=== PATIENT | male | born 1950 | race Caucasian/White ===

== ENCOUNTER → 2024-07-28 12:25 | Outpatient (BNVA) | payer OTHER, SELFPAY | PROVIDERS: Visit Provider Physician Assistant | DX: S39.012A Strain of muscle, fascia and tendon of lower back, initial encounter (principal); X50.0XXA Overexertion from strenuous movement or load, initial encounter | CPT/HCPCS: 72110; 99204 ==

== ENCOUNTER → 2024-08-01 11:19 | Outpatient (BNVA) | payer OTHER, SELFPAY | PROVIDERS: Visit Provider Physician Assistant Medical | DX: S39.012A Strain of muscle, fascia and tendon of lower back, initial encounter (principal); X50.0XXA Overexertion from strenuous movement or load, initial encounter; M54.16 Radiculopathy, lumbar region | CPT/HCPCS: 99213 ==

== ENCOUNTER → 2024-08-03 11:14 | Outpatient (BNVA) | payer OTHER, SELFPAY | PROVIDERS: PCP Physician Assistant; Visit Provider Physician Assistant Medical | DX: S39.012A Strain of muscle, fascia and tendon of lower back, initial encounter (principal); X50.0XXA Overexertion from strenuous movement or load, initial encounter; M54.16 Radiculopathy, lumbar region | CPT/HCPCS: 99213 ==

== ENCOUNTER 2024-08-05 15:27 | Outpatient (REF) | payer OTHER, SELFPAY ==
--- NOTE | ~2024-08-05 | MR_ITS ---
CLINICAL HISTORY: RIGHT LUMBAR RADICULOPATHY. MR lumbar spine without gadolinium Comparison: None Findings: No fracture or acute malalignment. No suspicious marrow lesion. Multilevel disc desiccation and disc space narrowing most pronounced at L4-5 and L5-S1. The conus terminates normally at L1. Cauda equina are unremarkable. Paravertebral soft tissues and retroperitoneal structures appear within expected limits Individual levels: L1-L2: Mild broad-based disc protrusion with facet hypertrophy. No central canal stenosis. No significant neural foraminal narrowing L2-L3: Broad-based disc protrusion with facet hypertrophy. Moderate left neural foraminal narrowing. Moderately severe right neural foraminal narrowing. No central canal stenosis. L3-L4: Small broad-based disc protrusion, left eccentric. Moderately severe bilateral neural foraminal narrowing. No significant central canal stenosis. L4-L5: Small broad-based disc protrusion. Mild facet hypertrophy. Moderately severe left neural foraminal narrowing and moderate right neural foraminal narrowing. No significant central canal stenosis. L5-S1: No significant central canal stenosis. Mild left neural foraminal narrowing. Impression: Multilevel neural foraminal narrowing as detailed. No significant central canal stenosis This document has been electronically signed by: Israel Cardoso MD on 08/05/2024 16:39:40
== END 2024-08-05 15:28 | disposition home or self-care (01) ==
LOC: HO.MRI 15:27
PROVIDERS: PCP Physician Assistant; Visit Provider Internal Medicine
DX: M54.16 Radiculopathy, lumbar region (principal)
CPT/HCPCS: 72148

== ENCOUNTER → 2024-08-05 15:46 | Outpatient (BNV) | payer OTHER, SELFPAY | PROVIDERS: PCP Physician Assistant; Visit Provider Radiology Vascular & Interventional Radiology | DX: M54.16 Radiculopathy, lumbar region (principal) | CPT/HCPCS: 72148 ==

== ENCOUNTER → 2024-08-10 11:09 | Outpatient (BNVA) | payer OTHER, SELFPAY | PROVIDERS: PCP Physician Assistant; Visit Provider Physician Assistant Medical | DX: S39.012A Strain of muscle, fascia and tendon of lower back, initial encounter (principal); X50.0XXA Overexertion from strenuous movement or load, initial encounter; M51.16 Intervertebral disc disorders with radiculopathy, lumbar region | CPT/HCPCS: 99213 ==

== ENCOUNTER → 2024-08-21 10:50 | Outpatient (BNVA) | payer OTHER, SELFPAY | PROVIDERS: PCP Physician Assistant; Visit Provider Physician Assistant Medical | DX: S39.012D Strain of muscle, fascia and tendon of lower back, subsequent encounter (principal); X50.0XXD Overexertion from strenuous movement or load, subsequent encounter; M51.16 Intervertebral disc disorders with radiculopathy, lumbar region | CPT/HCPCS: 99213 ==

== ENCOUNTER 2024-08-30 13:11 | Outpatient (AMB) | payer OTHER, SELFPAY ==
--- NOTE | 2024-08-30 13:22 | A.OFFVIS_ITS ---
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 This pain began after lifting a heavy object at work on July 27, and has persisted since then. The pain was initially intense and affected his ability to stand and walk, with a severe episode occurring two weeks ago that lasted for about 30 hours. It is currently described as mild but persistent, with radiation down the right leg. A recent MRI indicated lumbar foraminal stenosis with no specific nerve root compression. He has been undergoing physical therapy for three weeks and using medications such as Gabapentin. He is employing assistive devices to mitigate the risk of further injury. Recent MRI reviewed, results as per below - Onset and Timing: Began on July 27 after lifting a heavy object. - Quality and Character: Severe, excruciating during peaks, emily to a nielsen splint during milder instances. - Primary Location: Lower back. - Areas of Radiation: Down the right leg, occasionally to the toes. - Exacerbating Factors: Certain movements or postures. - Relieving Factors: Physical therapy, medication (Gabapentin), use of assistive devices like a cane and walker. - Affects activities such as standing, walking, and bending. - Affect: Pain impacts mood, leading to fear of reinjury and affects daily life activities. - Analgesia: Currently using Gabapentin; previously used Tylenol/NSAIDS. Goals include further pain reduction and management. - Adverse Effects: Not noted with current medications; previous muscle relaxant was reportedly ineffective in inducing sleepiness. - Activities of Daily Living: Pain interferes with ambulation, chores, and self- care activities like bending. - Aberrant Drug Related Behaviors: None reported. Denies red flag symptoms including new loss of bowel, bladder or saddle anesthesia. Currently using a cane for ambulation. Occasionally using walker at home. Denies current use of anticoagulants. Denies implantable devices, pacemaker defibrillator Denies current use of nicotine, tobacco, alcohol or illicit substances Review of Systems Const Details: - Musculoskeletal: Reports lower back pain radiating down the right leg. - Neurological: Reports weakness or inability to stand on the right leg after onset. - General: Denies fever, chills, or systemic symptoms. Physical Exam Vital Signs: Last Vital Signs Pulse 78 08/30/24 13:23 Resp 16 08/30/24 13:23 BP 132/70 08/30/24 13:23 Pulse Ox 97 08/30/24 13:23 Oxygen Delivery Method Room Air 08/30/24 13:23 BMI result Body Mass Index 22.6 General: awake, alert, oriented. Answers questions appropriately. Fully engaged in examination. Skin: warm, dry, intact HEENT: Normocephalic. Hearing intact. Cardiac: External chest normal in appearance. Respiratory: No cough, audible wheezing or stridor. Abdomen: without gross distension. MS: No obvious swelling or deformities. Able to stand on bilateral tiptoes and bilateral heels.? Able to transition from sit to stand unassisted. Ambulates with bilaterally normal heel strike and toe off Nontender to palpation of the lumbar vertebrae and lumbar paraspinal muscles SLR positive on the right Bilateral lower extremity strength 5/5 Bilateral lower extremity DTR intact Negative footdrop, negative clonus Decreased lumbar range of motion secondary to pain/stiffness Neurological: Oriented to person, place, time and situation. Thought process intact. Ambulates with the use of a cane Psychiatric: Appropriate mood and affect. Good judgment and insight. Results Reviewed Results Reviewed: 08/05/24 MR lumbar spine without gadolinium Comparison: None Findings: No fracture or acute malalignment. No suspicious marrow lesion. Multilevel disc desiccation and disc space narrowing most pronounced at L4-5 and L5-S1. The conus terminates normally at L1. Cauda equina are unremarkable. Paravertebral soft tissues and retroperitoneal structures appear within expected limits Individual levels: L1-L2: Mild broad-based disc protrusion with facet hypertrophy. No central canal stenosis. No significant neural foraminal narrowing L2-L3: Broad-based disc protrusion with facet hypertrophy. Moderate left neural foraminal narrowing. Moderately severe right neural foraminal narrowing. No central canal stenosis. L3-L4: Small broad-based disc protrusion, left eccentric. Moderately severe bilateral neural foraminal narrowing. No significant central canal stenosis. L4-L5: Small broad-based disc protrusion. Mild facet hypertrophy. Moderately severe left neural foraminal narrowing and moderate right neural foraminal narrowing. No significant central canal stenosis. L5-S1: No significant central canal stenosis. Mild left neural foraminal narrowing. Impression: Multilevel neural foraminal narrowing as detailed. No significant central canal stenosis Assessment & Plan Assessment & Plan (1) Lumbar radiculopathy: Code(s): M54.16 - Radiculopathy, lumbar region Category: Medical (2) Degenerative disc disease, lumbar: Code(s): M51.369 - Other intervertebral disc degeneration, lumbar region without mention of lumbar back pain or lower extremity pain Category: Medical (3) Cervical spondylosis: Code(s): M47.812 - Spondylosis without myelopathy or radiculopathy, cervical region Category: Medical (4) Foraminal stenosis of lumbar region: Code(s): M48.061 - Spinal stenosis, lumbar region without neurogenic claudication Category: Medical Plan Continue with physical therapy for back pain management, prescribing a muscle relaxant as needed. Maintain usage of Gabapentin to manage nerve pain. Educate on proper body mechanics to avoid reinjury and monitor progress. Consider steroid injections should the condition not improve with current treatment. Reassess regularly. During the visit, I discussed the primary diagnosis of lumbar foraminal stenosis and the related sciatica with the patient, emphasizing the importance of continued physical therapy for improvement. I outlined the management plan, prescribing methocarbamol as a muscle relaxant, advising its usage as necessary, especially during severe episodes. The option of steroid injections was discussed as a potential intervention if conservative measures are insufficient, highlighting its risks and benefits. The patient was informed about the need to avoid activities that may exacerbate his condition, with guidance on ergonomic adjustments. We also addressed the importance of adhering to prescribed medications, and regular follow-ups were advised to monitor efficacy and progression. Patient was informed and verbally consented to the use of an ambient scribe for clinic note documentation during this visit. Orders: Orders PT Evaluation and Treatment Today M47.812 - Spondylosis without myelopathy or radiculopathy, cervical region, M48.061 - Spinal stenosis, lumbar region without neurogenic claudication, M51.369 - Other intervertebral disc degeneration, lumbar region without mention of lumbar back pain or lower extremity pain, M54.16 - Radiculopathy, lumbar region Medications: New methocarbamol No driving while taking this medication. Do no take with alcohol or other WIRER Depressants 500 mg PO TID PRN 90 tabs 1RF muscle spasm Patient Instructions: - Continue with physical therapy as prescribed. - Use methocarbamol for muscle spasms as needed. - Take Gabapentin as directed for nerve pain management. - Use a cane or walker to assist with mobility. - Avoid lifting heavy objects and practice proper body mechanics. - Contact the office if pain worsens for possible oral steroid prescription. - Follow up as scheduled, and call if symptoms fail to improve. Coding Level of Care Code New Pt Level 4 (98384) Complex EM visit Add On G2211 Diagnoses Lumbar radiculopathy M54.16 Degenerative disc disease, lumbar M51.369 Cervical spondylosis M47.812 Foraminal stenosis of lumbar region M48.061
[2024-08-30 13:23] VITALS: BP 132/70; PULSE 78; RESP 16; O2SAT 97; BMI 22.6
== END 2024-08-30 14:02 | disposition home or self-care (01) ==
LOC: HO.PMC 13:11
PROVIDERS: PCP Physician Assistant; Visit Provider Registered Nurse Emergency
DX: M54.16 Radiculopathy, lumbar region (principal); M51.369 Other intervertebral disc degeneration, lumbar region without mention of lumbar back pain or lower extremity pain; M47.812 Spondylosis without myelopathy or radiculopathy, cervical region; M48.061 Spinal stenosis, lumbar region without neurogenic claudication
CPT/HCPCS: 99204; G2211

== ENCOUNTER → 2024-08-30 13:11 | Outpatient (BNVA) | payer OTHER, SELFPAY | PROVIDERS: PCP Physician Assistant; Visit Provider Registered Nurse Emergency | DX: M54.16 Radiculopathy, lumbar region (principal); M51.369 Other intervertebral disc degeneration, lumbar region without mention of lumbar back pain or lower extremity pain; M47.812 Spondylosis without myelopathy or radiculopathy, cervical region; M48.061 Spinal stenosis, lumbar region without neurogenic claudication | CPT/HCPCS: 99202 ==

== ENCOUNTER → 2024-09-05 11:14 | Outpatient (BNVA) | payer OTHER, SELFPAY | PROVIDERS: PCP Physician Assistant; Visit Provider Physician Assistant Medical | DX: S39.012D Strain of muscle, fascia and tendon of lower back, subsequent encounter (principal); X50.0XXD Overexertion from strenuous movement or load, subsequent encounter; M51.16 Intervertebral disc disorders with radiculopathy, lumbar region | CPT/HCPCS: 99213 ==

== ENCOUNTER 2024-09-06 11:00 | Outpatient (RCR) | payer OTHER, SELFPAY ==
--- NOTE | 2024-08-09 11:49 | MHC.PT.EP ---
[facility] [place] Office [place] Office [place] Office [address] Mariela Mayorga [address] [phone] F: [phone] F: [phone] F: [phone] F: [phone] Physical Therapy Plan of Care Date of Evaluation: 08/09/24 Date of Surgery: n/a Diagnosis: R lumbar radiculopathy Assessment: Patient is a 74 year old male presenting to PT with complaints of pain in his R low back. Pt reports onset of pain began 07/27/2024 due to lifting at work. He presents today with impairments in pain, lumbar ROM, hip strength, radicular sx. 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 Pt expresses mcc goal of reducing pain, and is motivated to work towards this in PT. Clinical presentation today is most consistent with signs and sx associated with R low back pain and pt will benefit from skilled PT 2 week x 4 weeks to address the following problems and impairments noted upon evaluation: pain, lumbar ROM, hip strength, radicular sx. These problems limit the patient with the following functional activities: work, ambulating, standing, stair negotiation. The prescribed treatment plan of care is medically necessary. Co-morbidities of hx cancer, murmur were identified and taken into considerations of plan of care. Pt was educated on HEP, role of PT, prognosis, POC. Frequency and Duration: The patient will be seen 2 x week x 4 weeks Short Term Goals: Pt will demonstrate centralization of sx in 2 weeks. Pt will demonstrate improved hip MMT strength by 1/3 grade in 2 weeks. Pt will demonstrate ability to move through available lumbar ROM in 2 weeks. Automatic Stacker Goals: Pt will demonstrate improved Juan F score by 10% in 4 weeks for improved functional mobility. Pt will demonstrate ability to bend and lift with min to no pain for prepare to return to work in 4 weeks. Pt will demonstrate ability to ambulate community distances with min to no pain in 4 weeks for return to PLOF. Treatment Plan: Modalities to reduce pain, spasms and effusion. Manual therapy to restore motion and function. Therapeutic exercise to improve strength and flexibility. Neuromuscular re-education for posture and balance. Therapeutic activities to return to functional activities of daily living. Electronically signed by: Micki Bailey PT, DPT, ATC Please sign and return to therapist. Thank you for your referral.
--- NOTE | 2024-09-06 11:51 | MHC.PT.DC ---
[facility] [place] Office [place] Office [place] Office [address] Mariela Mayorga [address] [phone] F: [phone] F: [phone] F: [phone] F: [phone] Physical Therapy Discharge Report Diagnosis: R lumbar radiculopathy Date of Surgery: n/a Date of Evaluation: 08/09/24 Date of Discharge: 09/06/24 Treatments to Date: 8 Cancellations to Date: 0 No Shows to Date: 0 Discharge Status: Independent with HEP Recommend MD Follow-up Discharge Summary: 09/06/2024: Pt made some initial progress with skilled PT however recently he has not been making any further progress. He continues to have shooting pain down his leg as far as his ankle requiring the use of a cane. He feels his R knee is heavy and randomly gives out on him. This is despite also being on a couple different medications for his sx. We have tried a variety of interventions in skilled PT all without significant success. Due to pt?s recent lack of progress, it is no longer appropriate to continue with skilled PT. He recently saw pain management and work connection both of whom would like for him to continue with PT, however I can not justify this due to his recent lack of progress both objectively and functionally. He is independent with his HEP, therefore, I recommend he continues to work on his HEP to maintain gains made thus far. I also recommend he continues to follow up with work connection and pain management as scheduled to manage his ongoing pain/sx. Pt is in agreement with this plan. Electronically signed by: Micki Bailey, PT, DPT, ATC Please sign and return to therapist. Thank you for your referral.
== END 2024-09-06 11:51 | disposition home or self-care (01) ==
LOC: HO.PTCHIC 11:00
PROVIDERS: PCP Physician Assistant; Visit Provider Physician Assistant Medical
DX: M54.16 Radiculopathy, lumbar region (principal)
CPT/HCPCS: 97110; 97140; 97161

== ENCOUNTER 2024-09-22 11:08 | Outpatient (AMB) | payer OTHER, SELFPAY ==
[2024-09-22 11:28] VITALS: BP 142/75; PULSE 80; O2SAT 98; BMI 22.7
--- NOTE | 2024-09-22 11:28 | MHC.OFFVIS ---
Vital Signs 09/22/24 11:28 Height 6 ft Weight 167 lb 6 oz BMI 22.7 BP 142/75 H Blood Pressure Location Rt brachial Position Sitting Pulse 80 Pulse Source Pulse Oximeter Pulse Oximetry (%) 98 Oxygen Delivery Method Room Air Intake Visit Reasons: Follow Up After Discharge From PT Allergies shellfish derived Adverse Reaction (Severe, Verified 09/22/24 11:29) Headache HPI Comments Details: The patient is a 74-year-old male presenting with management of persistent but improved lower back pain and right lumbar radiculopathy. The patient has been experiencing chronic lower back pain with radiation to the right leg for an extended period. Despite experiencing intermittent tingling the severity has reduced over time and the pain is not as debilitating. Pain today is rated as a 3/10. The patient reports that various factors such as movement can trigger episodes of discomfort, but there is no clear pattern. While activities like physical therapy have previously been exhausted with reported maximum benefit reached, continued at-home exercises are maintained with some benefit. The patient is also reliant on muscle relaxants, which are unpleasant due to adverse effects. - Onset and Timing: Persistent lower back pain, chronic in nature - Quality/Character: Described as stabbing, throbbing; intermittent tingling and zipping sensations - Location: Lower back with radiation to right leg - Radiation: Right leg - Exacerbating Factors: Movement, postures, changes in activity level - Relieving Factors: Muscle relaxants, physical therapy, gabapentin. previously used Tylenol/NSAIDS - Interference: Limiting full engagement in activities, impacting quality of life and work ability - Affect: Persistent pain causes frustration but severity has improved, impacting daily functions - Analgesia: Muscle relaxants taken; ongoing pain but not as intense - Adverse Effects: Unpleasant side effects from muscle relaxants - Activities of Daily Living: Limited engagement in full activities; considering return to work - Aberrant Drug Related Behaviors: None reported Review of Systems Const Details: - Musculoskeletal: Reports persistence of lower back pain radiating to the right leg; denies debilitating severity - Neurologic: Reports episodic tingling in lower back and leg - General: Denies other new symptoms Physical Exam Vital Signs: Last Vital Signs Pulse 80 09/22/24 11:28 BP 142/75 H 09/22/24 11:28 Pulse Ox 98 09/22/24 11:28 Oxygen Delivery Method Room Air 09/22/24 11:28 BMI result Body Mass Index 22.7 General: awake, alert, oriented. Answers questions appropriately. Fully engaged in examination. Skin: warm, dry, intact HEENT: Normocephalic. Hearing intact. Cardiac: External chest normal in appearance. Respiratory: No cough, audible wheezing or stridor. Abdomen: without gross distension. MS: No obvious swelling or deformities. Able to stand on bilateral tiptoes and bilateral heels.? Able to transition from sit to stand unassisted. Ambulates with bilaterally normal heel strike and toe off Nontender to palpation of the lumbar vertebrae and lumbar paraspinal muscles SLR positive on the right. Negative footdrop, negative clonus Neurological: Oriented to person, place, time and situation. Thought process intact. Ambulates with the use of a cane Psychiatric: Appropriate mood and affect. Good judgment and insight. Results Reviewed Results Reviewed: 08/05/24 MR lumbar spine without gadolinium Comparison: None Findings: No fracture or acute malalignment. No suspicious marrow lesion. Multilevel disc desiccation and disc space narrowing most pronounced at L4-5 and L5-S1. The conus terminates normally at L1. Cauda equina are unremarkable. Paravertebral soft tissues and retroperitoneal structures appear within expected limits Individual levels: L1-L2: Mild broad-based disc protrusion with facet hypertrophy. No central canal stenosis. No significant neural foraminal narrowing L2-L3: Broad-based disc protrusion with facet hypertrophy. Moderate left neural foraminal narrowing. Moderately severe right neural foraminal narrowing. No central canal stenosis. L3-L4: Small broad-based disc protrusion, left eccentric. Moderately severe bilateral neural foraminal narrowing. No significant central canal stenosis. L4-L5: Small broad-based disc protrusion. Mild facet hypertrophy. Moderately severe left neural foraminal narrowing and moderate right neural foraminal narrowing. No significant central canal stenosis. L5-S1: No significant central canal stenosis. Mild left neural foraminal narrowing. Impression: Multilevel neural foraminal narrowing as detailed. No significant central canal stenosis Assessment & Plan Assessment & Plan (1) Lumbar radiculopathy: Code(s): M54.16 - Radiculopathy, lumbar region Category: Medical (2) Degenerative disc disease, lumbar: Code(s): M51.369 - Other intervertebral disc degeneration, lumbar region without mention of lumbar back pain or lower extremity pain Category: Medical (3) Cervical spondylosis: Code(s): M47.812 - Spondylosis without myelopathy or radiculopathy, cervical region Category: Medical (4) Foraminal stenosis of lumbar region: Code(s): M48.061 - Spinal stenosis, lumbar region without neurogenic claudication Category: Medical Plan The management of this patient's chronic lower back pain and right lumbar radiculopathy will involve an epidural steroid injection, aimed at reducing inflammation and nerve irritation to alleviate symptoms. This step is taken as physical therapy has reached maximum benefit and ongoing muscle relaxants provide limited relief with notable adverse effects. This intervention, performed under x-ray guidance, aims to relieve pain significantly, facilitating increased functionality and quality of life. With insurance approval sought, the patient will be scheduled for the procedure. The potential risks, though present, are outweighed by the expected benefits. Continuation of home exercises and medication review will be part of ongoing management to ensure safety and efficacy of care. I discussed with the patient the persistent nature of his lower back pain and radiculopathy despite prior treatment with physical therapy, Tylenol, NSAIDs and muscle relaxants. We agreed on proceeding with an epidural steroid injection as a logical next step, aiming to control inflammation and alleviate persistent symptoms. I reviewed the benefits of reducing nerve irritation and improving function, acknowledging the possible risks but explaining that they are considerably outweighed by the anticipated benefits. Discussion encompassed the procedural details, available under x-ray guidance maximizing accuracy, and how Workman's Compensation will cover the cost once approved. The patient expressed understanding and agreement with the plan, looking forward to potentially achieving better pain management. I emphasized the importance of continuing at-home exercises and monitoring symptoms, allowing for timely adjustments to care. Instructions for follow-up were documented, and reassurance was provided regarding the preliminary nature of the ongoing symptom management approach. Will schedule for fluoroscopy guided right L4-5 transforaminal epidural steroid injection with local anesthetic. Patient was informed and verbally consented to the use of an ambient scribe for clinic note documentation during this visit. Patient Instructions: - Continue prescribed at-home exercises daily. - Take muscle relaxants as directed but be aware of side effects. - Await scheduling call for epidural steroid injection. - Monitor for any worsening of pain or new symptoms. - Report any adverse effects or severe pain promptly. - Stay active with light activities and adjust intensity as tolerated. - Consult family or friends for support and assistance if needed. Coding Level of Care Code Est Pt Level 3 (09498) Complex EM visit Add On G2211 Diagnoses Lumbar radiculopathy M54.16 Degenerative disc disease, lumbar M51.369 Cervical spondylosis M47.812 Foraminal stenosis of lumbar region M48.061
== END 2024-09-22 11:49 | disposition home or self-care (01) ==
LOC: HO.PMC 11:09
PROVIDERS: PCP Physician Assistant; Visit Provider Registered Nurse Emergency
DX: M54.16 Radiculopathy, lumbar region (principal); M51.369 Other intervertebral disc degeneration, lumbar region without mention of lumbar back pain or lower extremity pain; M47.812 Spondylosis without myelopathy or radiculopathy, cervical region; M48.061 Spinal stenosis, lumbar region without neurogenic claudication
CPT/HCPCS: 99213; G2211

== ENCOUNTER → 2024-09-22 11:08 | Outpatient (BNVA) | payer OTHER, SELFPAY | PROVIDERS: PCP Physician Assistant; Visit Provider Registered Nurse Emergency | DX: M54.16 Radiculopathy, lumbar region (principal); M51.369 Other intervertebral disc degeneration, lumbar region without mention of lumbar back pain or lower extremity pain; M47.812 Spondylosis without myelopathy or radiculopathy, cervical region; M48.061 Spinal stenosis, lumbar region without neurogenic claudication | CPT/HCPCS: 99212 ==

== ENCOUNTER → 2024-09-26 11:10 | Outpatient (BNVA) | payer OTHER, SELFPAY | PROVIDERS: PCP Physician Assistant; Visit Provider Physician Assistant Medical | DX: S39.012D Strain of muscle, fascia and tendon of lower back, subsequent encounter (principal); X50.0XXD Overexertion from strenuous movement or load, subsequent encounter; M54.16 Radiculopathy, lumbar region; M51.26 Other intervertebral disc displacement, lumbar region | CPT/HCPCS: 99213 ==

== ENCOUNTER → 2024-10-05 13:38 | Outpatient (BNVA) | payer OTHER, SELFPAY | PROVIDERS: PCP Physician Assistant; Visit Provider Physician Assistant Medical | DX: S39.012D Strain of muscle, fascia and tendon of lower back, subsequent encounter (principal); X50.0XXD Overexertion from strenuous movement or load, subsequent encounter; M51.16 Intervertebral disc disorders with radiculopathy, lumbar region | CPT/HCPCS: 99213 ==

== ENCOUNTER → 2024-11-02 14:32 | Outpatient (BNVA) | payer OTHER, SELFPAY | PROVIDERS: PCP Physician Assistant; Visit Provider Physician Assistant Medical | DX: S39.012D Strain of muscle, fascia and tendon of lower back, subsequent encounter (principal); X50.0XXD Overexertion from strenuous movement or load, subsequent encounter; M51.16 Intervertebral disc disorders with radiculopathy, lumbar region | CPT/HCPCS: 99213 ==

== ENCOUNTER 2024-11-28 10:07 | Outpatient (REF) | payer OTHER, SELFPAY ==
--- NOTE | ~2024-11-28 | FL_ITS ---
EXAMINATION: FL GUIDANCE ONLY HISTORY: M54.16 - Radiculopathy, lumbar region COMPARISON: Correlation is made with plain films of the lumbar spine dated 07/28/2024. TECHNIQUE: Fluoroscopy time: 0.2 minutes. Cumulative Dose: 3.17 mGy. DAP: 0.0551 mGym2 Images: 1. FINDINGS: A single fluoroscopic spot film of the lumbar spine in the AP projection demonstrates a needle and contrast material in the region of the right L4-5 facet joint. FL/FL guidance in treatment room IMPRESSION: Fluoroscopy during procedure. Please see procedure report for additional information. Electronically signed by: Yves Drew MD 11/28/2024 11:44 AM EDT
== END 2024-11-28 10:08 | disposition home or self-care (01) ==
LOC: CF 10:07
PROVIDERS: Visit Provider Anesthesiology
DX: M51.16 Intervertebral disc disorders with radiculopathy, lumbar region (principal)
CPT/HCPCS: 64483; J2003; J3301; Q9967

== ENCOUNTER 2024-11-28 10:25 | Outpatient (AMB) | payer OTHER, SELFPAY ==
[2024-11-28 10:44] VITALS: BP 138/72; PULSE 67; RESP 18; O2SAT 98; BMI 22.6
--- NOTE | 2024-11-28 10:44 | A.OFFVIS_ITS ---
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: No Allergies shellfish derived Adverse Reaction (Severe, Verified 09/22/24 11:29) Headache Physical Exam Vital Signs: Last Vital Signs Pulse 67 11/28/24 10:44 Resp 18 11/28/24 10:44 BP 138/72 11/28/24 10:44 Pulse Ox 98 11/28/24 10:44 Oxygen Delivery Method Room Air 11/28/24 10:44 BMI result Body Mass Index 22.6 Assessment & Plan Assessment & Plan (1) Lumbar radiculopathy: Code(s): M54.16 - Radiculopathy, lumbar region Category: Medical (2) Degenerative disc disease, lumbar: Code(s): M51.369 - Other intervertebral disc degeneration, lumbar region without mention of lumbar back pain or lower extremity pain Category: Medical Plan Transforaminal right L4-5 epidural steroid injection Informed consent was thoroughly explained to the patient before the procedure. The patient came to the operating room. He was positioned prone on operating table with a pillow under her abdomen. Time-out was performed delineating correct site and side of the procedure, nature of the injection, name and date of of the patient. The lower back of the patient was prepped with ChloraPrep and draped with sterile utility towels. C-arm was brought over the operating field and sq picture of L4 vertebra was demonstrated on the screen. The right side was chosen as the side of the injection. Tilting machine ipsilateral to the right at the level of L3 the most prominent picture of the pedicle on the right was demonstrated on the screen. 3 mm below the most lowest point of the pedicle projection to the skin small amount of lidocaine 1% was injected to anesthetize the skin. After that 5 in 22 gauge Quincke point needle was inserted through the skin wheal and was advanced toward the L3-L4 foramina on anterior posterior, lateral and oblique views intermittently. When the needle entered foramina on AP view. When tip of the needle entered foramina projection on AP view injection of the contrast was performed demonstrating epidural and perineural spread of the contrast. After that injection of the treatment medicine 3 cc of preservative-free lidocaine 1% mixed with Kenalog 20 mg was injected into the foramina. No intrathecal and no intravascular spread of the contrast was noted. The needle was removed . Upon completion of the procedure needle was removed and sterile Band-Aid was applied. Patient tolerated the procedure well. Orders: Orders FL guidance in treatment room Today M54.16 - Radiculopathy, lumbar region Coding Level of Care Code Procedure Only Diagnoses Lumbar radiculopathy M54.16 Degenerative disc disease, lumbar M51.369
== END 2024-11-28 11:19 | disposition home or self-care (01) ==
LOC: HO.PMCPRC 10:25
PROVIDERS: PCP Physician Assistant; Visit Provider Anesthesiology
DX: M54.16 Radiculopathy, lumbar region (principal); M51.369 Other intervertebral disc degeneration, lumbar region without mention of lumbar back pain or lower extremity pain
CPT/HCPCS: 64483

== ENCOUNTER → 2024-12-08 14:21 | Outpatient (BNVA) | payer OTHER, SELFPAY | PROVIDERS: PCP Physician Assistant; Visit Provider Physician Assistant Medical | DX: M51.16 Intervertebral disc disorders with radiculopathy, lumbar region (principal) | CPT/HCPCS: 99213 ==

== ENCOUNTER 2024-12-27 09:02 | Outpatient (AMB) | payer OTHER, SELFPAY ==
--- NOTE | 2024-12-27 09:20 | A.OFFVIS_ITS ---
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 He underwent a right L4 L5 transforaminal epidural steroid injection four weeks ago, which has improved the leg pain significantly, although some residual back pain persists. The back pain is described as a dull ache, primarily in the middle and right side, occasionally radiating to the left side. The patient reports difficulty with certain activities, such as getting in and out of the car and putting on compression socks, due to the pain. He continues to experience intermittent pain in the knee and leg, although it is much improved since the injection. The patient has a history of arthritis, which contributes to the dull, aching pain in the back and neck. He describes the pain as non-constant, with some days being pain-free, while other days the pain returns after physical activity. - Onset: Pain began prior to the epidural steroid injection. - Quality: Described as a dull ache. - Location: Primarily in the middle and right side of the back, occasionally radiating to the left side. - Exacerbating factors: Activities such as getting in and out of the car, bending, and twisting. - Relieving factors: Chiropractic adjustments provide temporary relief. - Interference: Affects activities like putting on compression socks and lifting objects. - Affect: Pain impacts daily activities and causes concern about future physical capabilities. - Analgesia: Previous epidural steroid injection improved leg pain; current back pain persists. - Adverse Effects: No adverse effects from pain management were discussed. - Activities of Daily Living: Pain affects activities such as driving and dressing. - Aberrant Drug Related Behaviors: No aberrant behaviors reported. Prior: The patient is a 74-year-old male presenting with management of persistent but improved lower back pain and right lumbar radiculopathy. The patient has been experiencing chronic lower back pain with radiation to the right leg for an extended period. Despite experiencing intermittent tingling the severity has reduced over time and the pain is not as debilitating. Pain today is rated as a 3/10. The patient reports that various factors such as movement can trigger episodes of discomfort, but there is no clear pattern. While activities like physical therapy have previously been exhausted with reported maximum benefit reached, continued at-home exercises are maintained with some benefit. The patient is also reliant on muscle relaxants, which are unpleasant due to adverse effects. - Onset and Timing: Persistent lower back pain, chronic in nature - Quality/Character: Described as stabbing, throbbing; intermittent tingling and zipping sensations - Location: Lower back with radiation to right leg - Radiation: Right leg - Exacerbating Factors: Movement, postures, changes in activity level - Relieving Factors: Muscle relaxants, physical therapy, gabapentin. previously used Tylenol/NSAIDS - Interference: Limiting full engagement in activities, impacting quality of life and work ability - Affect: Persistent pain causes frustration but severity has improved, impacting daily functions - Analgesia: Muscle relaxants taken; ongoing pain but not as intense - Adverse Effects: Unpleasant side effects from muscle relaxants - Activities of Daily Living: Limited engagement in full activities; considering return to work - Aberrant Drug Related Behaviors: None reported Review of Systems Const Details: - Musculoskeletal: Reports dull, aching back pain; denies constant pain. - Neurological: Reports intermittent knee and leg pain; denies persistent leg pain. - Genitourinary: Reports increased urinary frequency post-prostate cancer treatment. - General: Reports muscle cramps at night. Physical Exam Exam Exam: General: awake, alert, oriented. Answers questions appropriately. Fully engaged in examination. Skin: warm, dry, intact HEENT: Normocephalic. Hearing intact. Cardiac: External chest normal in appearance. Respiratory: No cough, audible wheezing or stridor. Abdomen: without gross distension. MS: No obvious swelling or deformities. Able to stand on bilateral tiptoes and bilateral heels.? Able to transition from sit to stand unassisted. Ambulates with bilaterally normal heel strike and toe off Nontender to palpation of the lumbar vertebrae and lumbar paraspinal muscles SLR negative bilaterally Facet loading positive Neurological: Oriented to person, place, time and situation. Thought process intact. Ambulates with the use of a cane Psychiatric: Appropriate mood and affect. Good judgment and insight. Vital Signs: Last Vital Signs Pulse 62 12/27/24 09:21 Resp 16 12/27/24 09:21 BP 131/65 12/27/24 09:21 Pulse Ox 98 12/27/24 09:21 Oxygen Delivery Method Room Air 12/27/24 09:21 BMI result Body Mass Index 22.4 Results Reviewed Results Reviewed: 08/05/24 MR lumbar spine without gadolinium Comparison: None Findings: No fracture or acute malalignment. No suspicious marrow lesion. Multilevel disc desiccation and disc space narrowing most pronounced at L4-5 and L5-S1. The conus terminates normally at L1. Cauda equina are unremarkable. Paravertebral soft tissues and retroperitoneal structures appear within expected limits Individual levels: L1-L2: Mild broad-based disc protrusion with facet hypertrophy. No central canal stenosis. No significant neural foraminal narrowing L2-L3: Broad-based disc protrusion with facet hypertrophy. Moderate left neural foraminal narrowing. Moderately severe right neural foraminal narrowing. No central canal stenosis. L3-L4: Small broad-based disc protrusion, left eccentric. Moderately severe bilateral neural foraminal narrowing. No significant central canal stenosis. L4-L5: Small broad-based disc protrusion. Mild facet hypertrophy. Moderately severe left neural foraminal narrowing and moderate right neural foraminal narrowing. No significant central canal stenosis. L5-S1: No significant central canal stenosis. Mild left neural foraminal narrowing. Impression: Multilevel neural foraminal narrowing as detailed. No significant central canal stenosis Assessment & Plan Assessment & Plan (1) Lumbar radiculopathy: Code(s): M54.16 - Radiculopathy, lumbar region Category: Medical (2) Degenerative disc disease, lumbar: Code(s): M51.369 - Other intervertebral disc degeneration, lumbar region without mention of lumbar back pain or lower extremity pain Category: Medical (3) Cervical spondylosis: Code(s): M47.812 - Spondylosis without myelopathy or radiculopathy, cervical region Category: Medical (4) Foraminal stenosis of lumbar region: Code(s): M48.061 - Spinal stenosis, lumbar region without neurogenic claudication Category: Medical (5) Lumbar spondylosis: Code(s): M47.816 - Spondylosis without myelopathy or radiculopathy, lumbar region Category: Medical Plan Patient is suffering with axial lower back pain. The plan involves conducting diagnostic injections to confirm facet joints as the pain generator. The patient will keep a pain diary to evaluate the impact of these injections. Should the diagnostic injections confirm joint involvement, options such as steroid injections, temporary peripheral nerve stimulator or nerve ablation will be explored for sustained relief. The patient is advised to see his primary care physician about the muscle cramps to check for possible electrolyte imbalances. He is encouraged to continue chiropractic treatments and to use proper body mechanics to avoid symptom aggravation. Will schedule for fluoroscopy guided diagnostic bilateral L3-L4 DR L5 medial branch blocks with local anesthetic. Patient was informed and verbally consented to the use of an ambient scribe for clinic note documentation during this visit. Patient Instructions: - Keep a pain diary to monitor the effectiveness of the diagnostic injections. - Consult your primary care physician about muscle cramps to check for electrolyte imbalances. - Continue acute care occupational therapist and practice good body mechanics to prevent symptom exacerbation. Coding Level of Care Code Est Pt Level 3 (28205) Complex EM visit Add On G2211 Diagnoses Lumbar radiculopathy M54.16 Degenerative disc disease, lumbar M51.369 Cervical spondylosis M47.812 Foraminal stenosis of lumbar region M48.061 Lumbar spondylosis M47.816
[2024-12-27 09:21] VITALS: BP 131/65; PULSE 62; RESP 16; O2SAT 98; BMI 22.4
== END 2024-12-27 09:42 | disposition home or self-care (01) ==
LOC: HO.PMC 09:02
PROVIDERS: PCP Physician Assistant; Visit Provider Registered Nurse Emergency
DX: M54.16 Radiculopathy, lumbar region (principal); M51.369 Other intervertebral disc degeneration, lumbar region without mention of lumbar back pain or lower extremity pain; M47.812 Spondylosis without myelopathy or radiculopathy, cervical region; M48.061 Spinal stenosis, lumbar region without neurogenic claudication; M47.816 Spondylosis without myelopathy or radiculopathy, lumbar region
CPT/HCPCS: 99213; G2211

== ENCOUNTER → 2024-12-27 09:02 | Outpatient (BNVA) | payer OTHER, SELFPAY | PROVIDERS: PCP Physician Assistant; Visit Provider Registered Nurse Emergency | DX: M54.16 Radiculopathy, lumbar region (principal); M51.369 Other intervertebral disc degeneration, lumbar region without mention of lumbar back pain or lower extremity pain; M47.812 Spondylosis without myelopathy or radiculopathy, cervical region; M48.061 Spinal stenosis, lumbar region without neurogenic claudication; M47.816 Spondylosis without myelopathy or radiculopathy, lumbar region | CPT/HCPCS: 99212 ==

== ENCOUNTER → 2025-01-05 14:21 | Outpatient (BNVA) | payer OTHER, SELFPAY | PROVIDERS: PCP Physician Assistant; Visit Provider Physician Assistant Medical | DX: M51.16 Intervertebral disc disorders with radiculopathy, lumbar region (principal) | CPT/HCPCS: 99213 ==

== ENCOUNTER 2025-02-06 06:10 | Outpatient (REF) | payer OTHER, SELFPAY ==
--- NOTE | ~2025-02-06 | FL_ITS ---
EXAMINATION: FL GUIDANCE ONLY HISTORY: M47.816 - Spondylosis without myelopathy or radiculopathy, lumbar region COMPARISON: None available. TECHNIQUE: Fluoroscopy time: 1 minute, 6 seconds. Cumulative Dose: 10.6 mGy. DAP: 307.21 uGym2 Images: 10. FINDINGS: Fluoroscopic spot films of the lumbar spine in the AP projection demonstrate needles and contrast material in the regions of the bilateral L3-4, L4-5, and L5-S1 facet joints. FL/FL guidance in treatment room IMPRESSION: Fluoroscopy during procedure. Please see procedure report for additional information. Electronically signed by: Yves Drew MD 02/08/2025 07:27 AM EDT
== END 2025-02-06 06:11 | disposition home or self-care (01) ==
LOC: CF 06:10
PROVIDERS: Visit Provider Anesthesiology
DX: M47.816 Spondylosis without myelopathy or radiculopathy, lumbar region (principal)
CPT/HCPCS: 64493; 64494; J2003; J2795; Q9967

== ENCOUNTER 2025-02-06 07:48 | Outpatient (AMB) | payer OTHER, SELFPAY ==
--- NOTE | 2025-02-06 07:55 | MHC.OFFVIS ---
Vital Signs 02/06/25 07:56 Weight 165 lb BP 151/71 H Blood Pressure Location Lt brachial Position Sitting Respiration 18 Pulse 61 Pulse Source Pulse Oximeter Pulse Oximetry (%) 100 Oxygen Delivery Method Room Air Intake Visit Reasons: Bilateral Diagnostic L3-L4-DR L5 MBB Promotion Officer Required: No Allergies shellfish derived Adverse Reaction (Severe, Verified 12/27/24 09:25) Headache Physical Exam Vital Signs: Last Vital Signs Pulse 61 02/06/25 07:56 Resp 18 02/06/25 07:56 BP 151/71 H 02/06/25 07:56 Pulse Ox 100 02/06/25 07:56 Oxygen Delivery Method Room Air 02/06/25 07:56 Assessment & Plan Assessment & Plan (1) Lumbar spondylosis: Code(s): M47.816 - Spondylosis without myelopathy or radiculopathy, lumbar region Category: Medical Plan Diagnostic medial branch block L3,L4 dorsal ramus L5 bilateral.? ? ?Informed consent was explained to the patient. All questions were explained and? answered.? The patient was taken inside the operating room where he was positioned prone on the operating table. Time-out was performed delineating correct site, side, the nature of the procedure, patient's allergy, . All operating room staff was participating in OR time-out procedure. ? ? The lower back was prepped with ChloraPrep and draped with sterile utility towels.? C-arm was brought over the operating field and sq picture of L4-, L5 vertebra and S1 AREA were delineated on the screen.? Point of interest were delineated as confluence of superior articular process of L4 and L5 vertebra bilaterally with corresponding transverse processes as well as confluence of the sacral alae bilaterally with superior articular process of S1.? The projection of the point of interest to the skin were injected with the small amount of local anesthetic lidocaine 2% mixed with ropivacaine 0.5% 1-1 approximately 1 cc.? After that 22 gauge 3.5 inch spinal needle was driven sequentially to the points of interest in tunnel vision fashion. After needles gently contacted the bone at the point of interests the needle was injected with small amount of the contrast.? The injection of the contrast did not demonstrate any intravascular or intrathecal spread of the contrast.? After that injection of the? ropivacaine 0.5%-1cc was performed at each needle location.?After that the needles were removed and Bandaids were applied. Orders: Orders FL guidance in treatment room Today M47.816 - Spondylosis without myelopathy or radiculopathy, lumbar region Coding Level of Care Code Procedure Only Diagnoses Lumbar spondylosis M47.816
[2025-02-06 07:56] VITALS: BP 151/71; PULSE 61; RESP 18; O2SAT 100
== END 2025-02-06 08:15 | disposition home or self-care (01) ==
LOC: HO.PMCPRC 07:48
PROVIDERS: PCP Physician Assistant; Visit Provider Anesthesiology
DX: M47.816 Spondylosis without myelopathy or radiculopathy, lumbar region (principal)
CPT/HCPCS: 64493; 64494

== ENCOUNTER → 2025-02-09 14:37 | Outpatient (BNVA) | payer OTHER, SELFPAY | PROVIDERS: PCP Physician Assistant; Visit Provider Physician Assistant Medical | DX: M51.16 Intervertebral disc disorders with radiculopathy, lumbar region (principal) | CPT/HCPCS: 99213 ==

== ENCOUNTER 2025-03-02 15:22 | Outpatient (AMB) | payer OTHER, SELFPAY ==
--- NOTE | 2025-03-02 15:35 | A.OFFVIS_ITS ---
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 Following a recent procedure, the patient experienced significant pain relief for the first hour, with approximately 70% pain relief for 6 hours after the procedure. The procedure was a test injection to determine if the targeted area was correct, which provided temporary relief, indicating the correct area was targeted. Denies any untoward effects of the injections Patient has scheduled upcoming appointment with neurosurgeon to review MRI. - Pain relief was significant for the 6 hours after the procedure - Pain returned to baseline levels after 6 hours - Pain is exacerbated by certain activities such as getting in and out of bed and sitting in a car. - Affect: Pain impacts daily activities, causing frustration. - Analgesia: Temporary relief achieved with test injection, indicating correct target area. - Adverse Effects: Concerns about side effects from tamsulosin for benign prostatic hyperplasia. - Activities of Daily Living: Pain affects activities such as getting out of bed and sitting in a car. - Aberrant Drug Related Behaviors: None reported. Review of Systems Const Details: - Musculoskeletal: Reports chronic pain, exacerbated by certain activities. - Genitourinary: Reports urinary hesitancy and incomplete voiding. Physical Exam Exam Exam: General: awake, alert, oriented. Answers questions appropriately. Fully engaged in examination. Skin: warm, dry, intact HEENT: Normocephalic. Hearing intact. Cardiac: External chest normal in appearance. Respiratory: No cough, audible wheezing or stridor. Abdomen: without gross distension. MS: No obvious swelling or deformities. Able to transition from sit to stand unassisted. Neurological: Oriented to person, place, time and situation. Thought process intact. Psychiatric: Appropriate mood and affect. Good judgment and insight. Results Reviewed Results Reviewed: 08/05/24 MR lumbar spine without gadolinium Comparison: None Findings: No fracture or acute malalignment. No suspicious marrow lesion. Multilevel disc desiccation and disc space narrowing most pronounced at L4-5 and L5-S1. The conus terminates normally at L1. Cauda equina are unremarkable. Paravertebral soft tissues and retroperitoneal structures appear within expected limits Individual levels: L1-L2: Mild broad-based disc protrusion with facet hypertrophy. No central canal stenosis. No significant neural foraminal narrowing L2-L3: Broad-based disc protrusion with facet hypertrophy. Moderate left neural foraminal narrowing. Moderately severe right neural foraminal narrowing. No central canal stenosis. L3-L4: Small broad-based disc protrusion, left eccentric. Moderately severe bilateral neural foraminal narrowing. No significant central canal stenosis. L4-L5: Small broad-based disc protrusion. Mild facet hypertrophy. Moderately severe left neural foraminal narrowing and moderate right neural foraminal narrowing. No significant central canal stenosis. L5-S1: No significant central canal stenosis. Mild left neural foraminal narrowing. Impression: Multilevel neural foraminal narrowing as detailed. No significant central canal stenosis Assessment & Plan Assessment & Plan (1) Lumbar radiculopathy: Code(s): M54.16 - Radiculopathy, lumbar region Category: Medical (2) Degenerative disc disease, lumbar: Code(s): M51.369 - Other intervertebral disc degeneration, lumbar region without mention of lumbar back pain or lower extremity pain Category: Medical (3) Cervical spondylosis: Code(s): M47.812 - Spondylosis without myelopathy or radiculopathy, cervical region Category: Medical (4) Foraminal stenosis of lumbar region: Code(s): M48.061 - Spinal stenosis, lumbar region without neurogenic claudication Category: Medical (5) Lumbar spondylosis: Code(s): M47.816 - Spondylosis without myelopathy or radiculopathy, lumbar region Category: Medical Plan The patient will follow up with an orthopedic surgeon to review the MRI results and discuss potential surgical options for his chronic pain. If surgery is not indicated, the patient will return for further pain management discussions to explore long-term relief options. Patient was informed and verbally consented to the use of an ambient scribe for clinic note documentation during this visit. Patient Instructions: - Follow up with the orthopedic surgeon to review MRI results and discuss surgical options. - Return for further pain management discussions if surgery is not indicated. Coding Level of Care Code Est Pt Level 3 (44522) Complex EM visit Add On G2211 Diagnoses Lumbar radiculopathy M54.16 Degenerative disc disease, lumbar M51.369 Cervical spondylosis M47.812 Foraminal stenosis of lumbar region M48.061 Lumbar spondylosis M47.816
[2025-03-02 15:40] VITALS: BP 128/76; PULSE 74; O2SAT 97; BMI 22.4
== END 2025-03-02 15:52 | disposition home or self-care (01) ==
PROVIDERS: PCP Physician Assistant; Visit Provider Registered Nurse Emergency
DX: M54.16 Radiculopathy, lumbar region (principal); M51.369 Other intervertebral disc degeneration, lumbar region without mention of lumbar back pain or lower extremity pain; M47.812 Spondylosis without myelopathy or radiculopathy, cervical region; M48.061 Spinal stenosis, lumbar region without neurogenic claudication; M47.816 Spondylosis without myelopathy or radiculopathy, lumbar region
CPT/HCPCS: 99213; G2211

== ENCOUNTER → 2025-03-02 15:22 | Outpatient (BNVA) | payer OTHER, SELFPAY | PROVIDERS: PCP Physician Assistant; Visit Provider Registered Nurse Emergency | DX: M48.061 Spinal stenosis, lumbar region without neurogenic claudication (principal); M47.816 Spondylosis without myelopathy or radiculopathy, lumbar region; M54.16 Radiculopathy, lumbar region; M51.369 Other intervertebral disc degeneration, lumbar region without mention of lumbar back pain or lower extremity pain; M47.812 Spondylosis without myelopathy or radiculopathy, cervical region | CPT/HCPCS: 99212 ==

== ENCOUNTER → 2025-03-06 13:43 | Outpatient (BNVA) | payer OTHER, SELFPAY | PROVIDERS: PCP Physician Assistant; Visit Provider Physician Assistant Medical | DX: M54.16 Radiculopathy, lumbar region (principal); M51.369 Other intervertebral disc degeneration, lumbar region without mention of lumbar back pain or lower extremity pain | CPT/HCPCS: 99213 ==

== ENCOUNTER → 2025-03-26 13:42 | Outpatient (BNVA) | payer OTHER, SELFPAY | PROVIDERS: PCP Physician Assistant; Visit Provider Physician Assistant Medical | DX: M51.16 Intervertebral disc disorders with radiculopathy, lumbar region (principal); S39.012D Strain of muscle, fascia and tendon of lower back, subsequent encounter; X50.0XXD Overexertion from strenuous movement or load, subsequent encounter | CPT/HCPCS: 99213 ==

== ENCOUNTER → 2025-05-01 13:40 | Outpatient (BNVA) | payer OTHER, SELFPAY | PROVIDERS: PCP Physician Assistant; Visit Provider Physician Assistant Medical | DX: M51.16 Intervertebral disc disorders with radiculopathy, lumbar region (principal); S39.012D Strain of muscle, fascia and tendon of lower back, subsequent encounter; X50.0XXD Overexertion from strenuous movement or load, subsequent encounter | CPT/HCPCS: 99213 ==